=== PATIENT | female | born 1965 | race Caucasian/White ===

== ENCOUNTER 2017-07-15 12:39 | Outpatient (CLI) | payer BC | END 2017-07-15 12:40 | disposition home or self-care (01) | LOC: BICMAMMO 12:39 | PROVIDERS: ATTEND Obstetrics & Gynecology | DX: Z12.31 Encounter for screening mammogram for malignant neoplasm of breast (principal); N64.89 Other specified disorders of breast | CPT/HCPCS: 77067; G0202 ==

== ENCOUNTER 2023-08-16 13:48 | Emergency (ER) | payer BC | END 2023-08-16 15:22 | disposition home or self-care (01) | LOC: ERS 13:48 | DX: S52.502A Unspecified fracture of the lower end of left radius, initial encounter for closed fracture (principal); W23.1XXA Caught, crushed, jammed, or pinched between stationary objects, initial encounter ==

== ENCOUNTER 2023-08-28 13:40 | Outpatient (CLI) | payer BC | END 2023-08-28 13:41 | disposition home or self-care (01) | LOC: BICMAMMO 13:40 | PROVIDERS: ATTEND Family Medicine | DX: Z13.820 Encounter for screening for osteoporosis (principal); M81.0 Age-related osteoporosis without current pathological fracture; M85.89 Other specified disorders of bone density and structure, multiple sites; Z78.0 Asymptomatic menopausal state | CPT/HCPCS: 77080 ==

== ENCOUNTER 2025-03-15 12:17 | Outpatient (CLI) | payer BC | END 2025-03-15 12:18 | disposition home or self-care (01) | LOC: BICULT 12:17 | PROVIDERS: ATTEND Family Medicine | DX: E04.1 Nontoxic single thyroid nodule (principal) | CPT/HCPCS: 76536 ==